=== PATIENT | male | born 1950 | race Caucasian/White ===

== ENCOUNTER 2022-11-01 07:46 | Emergency (ER) | payer OTHER, SELFPAY ==
[2022-11-01 07:47] VITALS: BP 154/76; PULSE 84; RESP 20; TEMP 36.6; O2SAT 96
--- NOTE | 2022-11-01 07:56 | ED.GENADULT ---
HPI - General Adult General Chief complaint: Recheck/Abnormal Lab/Rx Stated complaint: left hip pain post surgery Time Seen by Provider: 11/01/22 07:48 History of Present Illness HPI narrative: 72-year-old male presenting to the emergency department due to not feeling safe at [facility]. Patient was at [facility] and had a left hip surgery on 10/27. Patient states he went to [facility] yesterday. Patient states since being there he does not feel that they have the adequate services to help with his physical and Occupational Therapy . Patient states he does not wish to go back to [facility]. Patient states he wishes to go to a different facility. Patient denies any pain or other complaints at this time. Related Data Allergies Allergy/AdvReac Type Severity Reaction Status Date / Time Penicillins Allergy Intermediate HIVES Verified 11/01/22 07:57 ciprofloxacin Allergy Abdominal Verified 11/01/22 07:57 Pain CIPROFLOXACIN HCL Allergy Abdominal Uncoded 11/01/22 07:57 Pain Review of Systems Review of Systems: CONSTITUTIONAL: Denies fever, chills, or sweats. EYES: Denies visual changes, redness, or discharge. ENT: Denies rhinorrhea, congestion, sore throat, or otalgia. CARDIOVASCULAR: Denies chest pain, palpitations, or edema. RESPIRATORY: Denies cough or dyspnea. GASTROINTESTINAL: Denies abdominal pain, nausea, vomiting, or diarrhea. GENITOURINARY: Denies dysuria or hematuria. SKIN: Denies rash or itching. MUSCULOSKELETAL: Intermittent left hip pain NEUROLOGIC: Denies headache, numbness, or weakness. Exam Narrative: APPEARANCE: Well appearing, no pain, no distress, well-nourished. HEAD: normocephalic, atraumatic. EYES: PERRLA/EOMI, conjunctivae clear. NOSE: Normal no drainage NECK: Supple. No adenopathy, no masses. RESPIRATORY: Airway patent, respirations nonlabored. Clear to auscultation bilaterally, no rales, rhonchi, wheezing. CARDIOVASCULAR: Regular rate and rhythm without murmurs rubs or gallops. ABDOMINAL: Soft, nontender, nondistended, normal bowel sounds MUSCULOSKELETAL: Moves all extremities. Strength/ROM intact, No edema, No calf tenderness. NEURO: Alert. Cranial nerves II through XII intact. Grossly intact SKIN: Well-appearing surgical incisions on left hip and left thigh Course Course Emergency Course: 72-year-old male reporting he does not feel safe at his current rehab facility. Patient is requesting to go to a different facility. Care coordination was consulted. Care coordination did put in referrals to 2 additional rehab facilities and did communicate with the [facility], [facility] will help to facilitate transfer to an mother rehab facility as it becomes available. [facility] did confirm that they do have the patient's medications and do have the necessary facilities to help transfer him. Patient was updated on the plan to get him back to [facility] while awaiting placement at an alternative rehab facility. Patient was comfortable with this plan. All question concerns were addressed. Patient was in no distress at time of discharge from the emergency department. Vital Signs Vital signs: Vital Signs Temperature 97.8 F 11/01/22 07:47 Pulse Rate 84 11/01/22 07:47 Respiratory Rate 20 11/01/22 07:47 Blood Pressure 154/76 H 11/01/22 07:47 Pulse Oximetry 96 11/01/22 07:47 Oxygen Delivery Room Air 11/01/22 07:47 Temperature 97.8 F 11/01/22 07:47 Pulse Rate 87 11/01/22 09:39 Respiratory Rate 15 11/01/22 09:39 Blood Pressure 147/76 H 11/01/22 09:39 Pulse Oximetry 96 11/01/22 09:39 Oxygen Delivery Room Air 11/01/22 07:47 Medical Decision Making Vital Signs Vital Signs: Vital Signs Temperature 97.8 F 11/01/22 07:47 Pulse Rate 84 11/01/22 07:47 Respiratory Rate 20 11/01/22 07:47 Blood Pressure 154/76 H 11/01/22 07:47 Pulse Oximetry 96 11/01/22 07:47 Oxygen Delivery Room Air 11/01/22 07:47
--- NOTE | 2022-11-01 08:06 | PC.NURSE ---
Care coordination speaking with pt.
--- NOTE | 2022-11-01 09:33 | PCCCNOTE ---
Called by ER bedside RN Teresita to meet with patient regarding a different rehab facility. Met with patient at bedside in ER room 5. Patient was admitted yesterday to [facility] after hip surgery at [facility]. He states that he was late getting his meds and he does not feel safe and think that they can do his rehab. Patient wanting to go to another rehab facility. Patient has [employer] insurance and has an auth for [facility]. Patient states that they do not have a ankit lift there. Called to [facility] and spoke with Suzie. She states that he admitted yesterday and right away was asking for protective services social worker. She and the social science manager got him admitted and he was calm. Asked about the meds as he said that they did not ge them. Suzie says that he admitted late but they have his medications. Asked about ankit lift since he does not think that they have one to help him. Suzie reports that there is a ankit lift on every floor to assist him. Suzie states if this career technical education instructor sends referrals to other facilities that they can assist in him getting transferred and will have to have his insurance auth transferred to. Per Suzie patient can either discharge home or will need to be back by midnight or will need a new authorization. Discussed with patient, and explained concerns were addressed with [facility]. Referrals fax'd to [facility] and [facility] per patient request. Patient also provided with phone number for [facility]. Patient informed that referrals were sent and [facility] will work with him to get him transferred to a new facility and his insurance changed to a new facility.
[2022-11-01 09:39] VITALS: BP 147/76; PULSE 87; RESP 15; O2SAT 96
--- NOTE | 2022-11-01 10:09 | PC.NURSE ---
[facility] accepted s [facility] return to [facility] ETA [id number]
== END 2022-11-01 10:48 ==
PROVIDERS: Emergency Provider Emergency Medicine
DX: Z02.2 Encounter for examination for admission to residential institution (principal)
CPT/HCPCS: 99281